=== PATIENT | female | born 1935 | race Caucasian/White ===

== ENCOUNTER 2019-03-26 09:41 | Day surgery (SDC) | payer OTHER, MEDICARE ==
[2019-03-21 14:28] VITALS: BMI 28.3
[2019-03-26] MEDS ORDERED: PROPOFOL 20 ML ONE (10:19)
[2019-03-26] MEDS ORDERED: LIDOCAINE HCL/PF 2% SDV 5ML VIAL ONE (10:19)
[2019-03-26 11:13] VITALS: TEMP 97.5
[2019-03-26 12:03] VITALS: BP 121/69; PULSE 66
--- NOTE | 2019-03-30 15:34 | PATH ---
Surgical Pathology Report Patient Name: ELISEO SOSA [facility]. Rec. #: [id number] /Age/Gender: 1935 (Age: 83) / F Account: [id number] Location: [facility] Taken: 03/26/2019 Received: 03/26/2019 Reported: 03/30/2019 Physicians: Hansel Pop M.D. 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 (SEE NOTE). IMMUNOSTAIN IS NEGATIVE FOR H. PYLORI ORGANISMS. Note: Cytokeratin (AE1/3) immunostain (performed at [facility]) was used in the evaluation of this case and is positive in the foci of poorly differentiated adenocarcinoma. This finding supports the diagnosis. Case reviewed in intradepartmental consultation with consensus on diagnosis. Her2 studies are being performed and the results will be reported separately in an addendum. Electronically Signed China Kirkland M.D. Gross Description Received in formalin, labeled "distal gastric body" are 3 motley, irregular portions of soft tissue ranging from 0.3-0.4 cm. in greatest dimension. The specimens are submitted in toto in one cassette. 03/27/201903/27/2019
== END 2019-03-26 11:55 | disposition home or self-care (01) ==
LOC: FASU-ENDO 09:41
PROVIDERS: ATTEND Internal Medicine Gastroenterology
PROC: 0DJD8ZZ Inspection of Lower Intestinal Tract, Via Natural or Artificial Opening Endoscopic (ICD-10-PCS; principal; 2019-03-26 10:33)
DX: D50.9 Iron deficiency anemia, unspecified (principal); K57.30 Diverticulosis of large intestine without perforation or abscess without bleeding; K63.89 Other specified diseases of intestine
CPT/HCPCS: 88305-TC; 88342-TC

== ENCOUNTER 2021-01-19 07:43 | Day surgery (SDC) | payer MEDICARE, OTHER ==
[2021-01-19 08:11] VITALS: BMI 28.3
[2021-01-19 10:23] VITALS: BP 109/62; PULSE 79; TEMP 98
== END 2021-01-19 10:15 | disposition home or self-care (01) ==
LOC: FASU-ENDO 07:43
PROVIDERS: ATTEND Internal Medicine Gastroenterology
PROC: 0DB48ZX Excision of Esophagogastric Junction, Via Natural or Artificial Opening Endoscopic, Diagnostic (ICD-10-PCS; principal; 2021-01-19 09:34)
DX: Z85.028 Personal history of other malignant neoplasm of stomach (principal); Z98.0 Intestinal bypass and anastomosis status; K31.89 Other diseases of stomach and duodenum; K63.89 Other specified diseases of intestine